=== PATIENT | female | born 1995 | race Caucasian/White ===

== ENCOUNTER 2018-01-08 19:32 | Emergency (ER) | payer MEDICAID ==
[~2018-01-08] VITALS: Ht 167.6 cm; Wt 73.0 kg
[2018-01-08 19:46] VITALS: Ht 167.6 cm; Wt 73.0 kg
[2018-01-08 21:19] VITALS: BP 119/76
== END 2018-01-08 21:19 | disposition home or self-care (01) ==
LOC: ED 19:32
DX: S61.306A Unspecified open wound of right little finger with damage to nail, initial encounter (principal); G43.909 Migraine, unspecified, not intractable, without status migrainosus; W22.8XXA Striking against or struck by other objects, initial encounter; Y93.89 Activity, other specified; Y92.89 Other specified places as the place of occurrence of the external cause; Y99.8 Other external cause status
CPT/HCPCS: 90715; A4570; J1885; J2001

== ENCOUNTER 2018-04-08 16:17 | Emergency (ER) | payer MEDICAID ==
[~2018-04-08] VITALS: Ht 157.5 cm; Wt 74.4 kg
[2018-04-08 16:23] VITALS: Ht 157.5 cm; Wt 74.4 kg
[2018-04-08 18:12] VITALS: BP 138/80
== END 2018-04-08 18:12 | disposition home or self-care (01) ==
LOC: ED 16:17
DX: J06.9 Acute upper respiratory infection, unspecified (principal); G43.909 Migraine, unspecified, not intractable, without status migrainosus

== ENCOUNTER 2019-03-09 18:26 | Emergency (ER) | payer BC ==
[~2019-03-09] VITALS: Ht 170.2 cm; Wt 73.0 kg
[2019-03-09 19:22] VITALS: Ht 170.2 cm; Wt 73.0 kg
[2019-03-09 20:46] LABS: BASOPHIL % 0.5 % (0-2); PLATELET COUNT 336 x10^3mcL (130-400); RED CELL DISTRIBUTION WIDTH 13.1 % (11.5-14.5)
[2019-03-09 21:01] LABS: ALKALINE PHOSPHATASE 100 U/L (46-116); ALT/SGPT 28 U/L (14-59); AST/SGOT 10 U/L (15-37); BILIRUBIN TOTAL 0.4 mg/dL (0.20-1.00); CALCIUM 9.1 mg/dL (8.5-10.1); CARBON DIOXIDE 28.7 mmol/L (21-32); CHLORIDE SERUM 103 mmol/L (98-107); CREATININE SERUM 0.7 mg/dL (0.6-1.0); GFR1 > 60 mL/min; GLUCOSE SERUM 116 mg/dL (74-106); LIPASE 113 IU/L (73-393); POTASSIUM SERUM 4.2 mmol/L (3.5-5.1); SODIUM SERUM 138 mmol/L (136-145); TOTAL PROTEIN, SERUM 7.8 g/dL (6.4-8.2)
[2019-03-09 22:43] LABS: UA SPECIFIC GRAVITY 1.025 (1.005-1.035); microscopic required? YES; urine erythrocyte NEGATIVE (NEGATIVE)
[2019-03-10 00:52] VITALS: BP 120/89
== END 2019-03-10 00:52 | disposition home or self-care (01) ==
LOC: ED 18:26
PROVIDERS: Emergency Medicine
DX: G43.909 Migraine, unspecified, not intractable, without status migrainosus (principal); R19.7 Diarrhea, unspecified
CPT/HCPCS: J1100; J1885; J3475; J7030

== ENCOUNTER 2019-04-15 12:29 | Emergency (ER) | payer BC ==
[~2019-04-15] VITALS: Ht 165.1 cm; Wt 73.9 kg
[2019-04-15 12:47] VITALS: Ht 165.1 cm; Wt 73.9 kg
[2019-04-15 14:17] VITALS: BP 121/77
== END 2019-04-15 14:17 | disposition home or self-care (01) ==
LOC: ED 12:29
DX: J20.9 Acute bronchitis, unspecified (principal); G43.909 Migraine, unspecified, not intractable, without status migrainosus
CPT/HCPCS: Q0092

== ENCOUNTER 2019-05-11 14:59 | Emergency (ER) | payer BC ==
[~2019-05-11] VITALS: Ht 167.6 cm; Wt 64.9 kg
[2019-05-11 15:13] VITALS: BP 121/82; Ht 167.6 cm; Wt 64.9 kg
== END 2019-05-11 16:27 | disposition home or self-care (01) ==
LOC: ED 14:59
DX: J40 Bronchitis, not specified as acute or chronic (principal); G43.909 Migraine, unspecified, not intractable, without status migrainosus